=== PATIENT | female | born 1985 ===

== ENCOUNTER 2022-11-01 16:30 | Inpatient (IN) | payer OTHER ==
[~2022-11-01] VITALS: Ht 160 cm; Wt 66.2 kg
[2022-11-08] MEDS ORDERED: PRENATAL CAPLE1 EAC1 PO (09:58)
[2022-11-08] MEDS ORDERED: MAXIMUM D3325 MCG (15:21)
== END 2022-11-10 14:56 | disposition home or self-care (01) | DRG 807 ==
LOC: LDR 11-08 07:43 → OB/GYN 11-08 15:21
PROVIDERS: ADMIT Obstetrics & Gynecology Gynecology; ATTEND Obstetrics & Gynecology Gynecology
PROC: 10E0XZZ Delivery of Products of Conception, External Approach (ICD-10-PCS; principal; 2022-11-08)
PROC: 4A1HXCZ Monitoring of Products of Conception, Cardiac Rate, External Approach (ICD-10-PCS; 2022-11-08)
DX: O80 Encounter for full-term uncomplicated delivery (principal); Z37.0 Single live birth; Z3A.39 39 weeks gestation of pregnancy; Z20.822 Contact with and (suspected) exposure to COVID-19